=== PATIENT | male | born 1980 | race Caucasian/White ===

== ENCOUNTER 2020-07-14 09:22 | Outpatient (RCR) | payer OTHER, SELFPAY ==
[2020-07-10] MEDS: COVID-19 VACC, MRNA(PFIZER)/PF 30 MCG/0.3 ML SYRINGE IM (18:31)
[2020-07-31] MEDS: COVID-19 VACC, MRNA(PFIZER)/PF 30 MCG/0.3 ML SYRINGE IM (18:19)
== END 2020-10-07 23:59 ==
LOC: IMMUN 09:22
PROVIDERS: PCP Family Medicine; Visit Provider Family Medicine
DX: Z23 Encounter for immunization (principal)
CPT/HCPCS: 0001A; 0002A; 91300

== ENCOUNTER → 2021-01-29 15:20 | Outpatient (CLI) | payer OTHER, SELFPAY ==
--- NOTE | 2021-01-29 15:25 | RAD_ITS ---
STUDY: X-RAY CHEST REASON FOR EXAM: Male, 40 years old. Fever and cough TECHNIQUE: 2 PA and lateral views of the chest. COMPARISON: None. FINDINGS: The lungs are clear and expanded. There is no demonstrated pleural abnormality. Normal size heart. Normal mediastinum and jourdan. Normal visualized pulmonary arteries. Normal visualized aortic arch and descending thoracic aorta. Normal visualized thoracic spine. Normal visualized ribs, clavicles, and shoulders. There is no demonstrated abnormality of the visualized soft tissue structures of the upper abdomen. RAD/Chest PA and Lateral IMPRESSION: No acute pulmonary process Electronically Signed: Junior Bhatt MD at 17:04 EDT , Service support ,
== END ==
PROVIDERS: PCP Family Medicine; Referring Provider Family Medicine; Visit Provider Family Medicine
DX: U07.1 COVID-19 (principal)
CPT/HCPCS: 71046

== ENCOUNTER → 2022-08-23 | Outpatient (CLI) | payer OTHER, SELFPAY ==
[2022-08-23 18:01] LABS: Absolute Lymphocyte Count 2.41 X10^3/uL (0.83-4.51); Absolute Neutrophil Count 3.1 X10^3/uL (2.0-7.7); Basophil# 0.05 X10^3/uL; Basophil% 0.8 % (0-1); Eosinophil# 0.25 X10^3/uL; Hematocrit 46.6 % (40-54); Hemoglobin 15.3 g/dL (13.0-16.5); Lymphocyte # 2.41 X10^3/ul (0.83-4.51); Lymphocyte % 38.1 % (19-41); Mean Corp Hgb Conc 32.8 g/dL (32-36); Mean Corpuscular Hgb 28.9 pg (27.0-32.0); Mean Corpuscular Volume 87.9 fL (80-94); Mean Platelet Vol. 10.3 fl (6.2-12.0); Monocyte% 7.9 % (0-10); NRBC Flagged by Analyzer 0 % (0-5); Neutrophil # 3.06 X10^3/uL (2.7-7.7); Neutrophil % 48.4 % (47-70); Platelet Count 218 K/mm3 (150-450); RBC Distribution Width CV 11.6 % (11.6-14.6); RBC Distribution Width SD 36.9 fl (35.1-43.9); White Blood Count 6.3 K/mm3 (4.4-11.0)
[2022-08-23 18:20] LABS: Vitamin B12 440 pg/mL (211-911); Vitamin D,25 Hydroxy 25.4 ng/mL
[2022-08-23 18:55] LABS: ALB/GLOB Ratio 1.1 RATIO (0.9-2.4); AST(SGOT) 41 U/L (15-37); Alanine Aminotransfer ALT/SGPT 85 U/L (16-61); Albumin, Serum 4.1 g/dL (3.2-5.0); Alkaline Phosphatase 68 U/L (45-117); Anion Gap 5 (5-15); BUN 11 mg/dL (7-18); BUN/Creat Ratio 13.3 RATIO (10-20); Calcium,Total 9.2 mg/dL (8.5-10.1); Chloride 102 mmol/L (98-107); Cholesterol 201 mg/dL (200); Creatinine, Serum 0.82 mg/dL (0.70-1.30); EST Glomerular Filtration Rate 108 mL/min (>60); Est Glom Filt Rate - Afr Amer 131 mL/min (>60); Globulin 3.6 g/dL (2.2-4.2); Glucose 91 mg/dL (74-106); High Density Lipoprotein 43 mg/dL; Potassium 4.1 mmol/L (3.5-5.1); Protein, Total 7.7 g/dL (6.4-8.2); Sodium Level 134 mmol/L (136-145); T4 Free Direct 0.83 ng/dL (0.76-1.46); Thyroid Stim Hormone (TSH) 8.86 uIU/mL (0.358-3.74); Triglycerides 163 mg/dL; Very Low Density Lipoprotein 33 mg/dL (5-40)
== END | disposition home or self-care (01) ==
LOC: BFHLAB 15:51
PROVIDERS: PCP Nurse Practitioner Family; Referring Provider Nurse Practitioner Family; Visit Provider Nurse Practitioner Family
DX: E03.9 Hypothyroidism, unspecified (principal); E66.01 Morbid (severe) obesity due to excess calories; E78.5 Hyperlipidemia, unspecified; Z13.21 Encounter for screening for nutritional disorder
CPT/HCPCS: 36415; 80053; 80061; 82306; 82607; 84439; 84443; 85025

== ENCOUNTER 2022-10-06 09:51 | Emergency (ER) | payer OTHER, SELFPAY ==
[2022-10-06 09:52] VITALS: BP 143/104; PULSE 86; RESP 16; TEMP 36.6; O2SAT 96; BMI 40.7
--- NOTE | 2022-10-06 10:04 | EDS_ITS ---
HPI History of Present Illness Chief Complaint: Back Detail of Chief Complaint: Back pain Informant: patient Onset/Context/Timing Current Severity: 11/08 Narrative Narrative: Patient presents with back pain that started yesterday. He denies injury or trauma. He denies pain rating down his leg. Patient states that certain movements do seem to make it worse but then he will get into a certain position for of comfort and then the pain comes back. He describes nausea with it. There is been no vomiting. He denies urinary symptoms of frequency or urgency or hematuria. He has had no fevers. Patient states he had an MRI years ago that showed spinal stenosis. Patient has not had any back surgeries. No history of kidney stones. Patient does state that at times pain radiates around the front of the abdomen to the groin. PFSH PFS Medical History (Updated 10/06/22 @ 11:[address] Elizabeth Chaney, ) Rotator cuff arthropathy of right shoulder Thyroid disease Home Medications cyclobenzaprine 10 mg tablet 10 mg PO TID PRN Muscle Spasm #20 TABLETS 10/06/22 [Rx Last Taken Unknown] hydrocodone-acetaminophen 5-325mg 5mg-325mg 1 tab PO Q4H PRN PRN Pain 3 days #15 TABLETS 10/06/22 [Rx Last Taken Unknown] naproxen 500 mg tablet (Naprosyn) 500 mg PO BID PRN pain #20 tabs 10/06/22 [Rx Last Taken Unknown] Allergy/AdvReac Type Severity Reaction Status Date / Time Penicillins [PCN] Allergy Rash Verified 10/06/22 09:51 Surgical History (Updated 10/06/22 @ 10:15 by Michelle Farah) Vasectomy status Social History Smoking Status: Never smoker ROS ROS ED Review of Systems ROS Unobtainable: other Constitutional Constitutional ED: Reports lethargy; Denies chills, fever(s), sweats or weight loss Eyes Eyes: Denies blurry vision, change in vision or diplopia ENT ENT ED: Denies rhinorrhea or sore throat Cardiovascular Cardiovascular: Denies chest pain, orthopnea or racing heartbeat Respiratory/Chest Respiratory/Chest: Denies cough, dyspnea, dyspnea on exertion, orthopnea or sputum Gastrointestinal Gastrointestinal: Reports nausea; Denies abdominal pain, diarrhea or vomiting Genitourinary Genitourinary ED: Denies dysuria, hematuria or urinary frequency Musculoskeletal Musculoskeletal: Reports back pain; Denies arthralgias, myalgias or neck pain Integumentary Denies abscess, Abrasions or rash Neurologic Neurologic: Denies headache(s) or weakness Psychiatric Psychiatric: Denies anxiety, depression or suicidal thoughts Endocrine Endocrinology: Denies polydipsia, polyphagia or polyuria Hematologic/Lymphatic Hematologic/Lymphatic: Denies easy bleeding, easy bruising or lymphadenopathy Allergic/Immunologic Allergic/Immunologic ED: Denies mouth swelling, tongue swelling or urticaria EXAM Physical Exam Const Vital Signs: 10/06/22 09:52 Temperature 97.8 F Temperature Source Temporal Pulse Rate 86 Respiratory Rate 16 Blood Pressure 143/104 H Blood Pressure Mean 117 Pulse Ox 96 Oxygen Delivery Method Room Air Positive well nourished and well developed General Appearance ED: well developed and NAD HEENT Reports TM's clear and moist mucous membranes normocephalic and atraumatic; Negative for trauma or tenderness Tympanic Membrane ED: Yes TM's clear Eyes PERRL and EOMs intact bilaterally General Eye ED: Negative for pale conjunctiva or scleral icterus Neck no lymphadenopathy, supple and no JVD General: Negative for tenderness Chest Wall inspection of chest normal and palpation of chest normal Chest: Negative for tenderness Resp normal respiratory effort and clear to auscultation bilaterally Effort and Inspection: Negative for respiratory distress or pain with movement Auscultation: Negative for rhonchi, wheezes or diminished lung sounds Cardio regular rate, regular rhythm, S1 normal heart sound, S2 normal heart sound and no murmurs Peripheral Pulses: pulses 2+ throughout GI normal to inspection, nondistended, normoactive bowel sounds, soft to palpation, non-tender, non-distended and no masses Back/Spine Back/Spine Narrative: Patient with tenderness palpation over the right lumbar paraspinal musculature and lumbar spine diffusely. There is no erythema or warmth. No significant CVA tenderness on exam. Negative straight leg raises. Deep tendon reflexes are plus 2 out of 4 bilaterally at the patella and Achilles. Patient has normal L5 extension bilaterally. Patient has normal sensation to light touch. Extremity normal to inspection General Extremety ED: Negative for edema General Extremity: Negative for edema Neuro oriented x3, CN's II-XII intact bilaterally, no sensory deficits noted and gait normal Sensorium / Orientation: awake, alert, oriented to person, oriented to place and oriented to time Motor Exam: strength 5/5 throughout and strength abnormal Psych mental status grossly normal Skin no rashes or lesions noted and no wounds MDM MDM MDM Narrative Medical decision making narrative: Patient with back pain that is atraumatic. This could be musculoskeletal versus kidney stone versus gallbladder disease. Pain does seem to be positional at times but radiates to the right side of the abdomen. IV line established. He was medicated initially with Toradol and Norflex as well as some Zofran. He did have some pain relief with that but continues to describe some discomfort. CBC with differential is normal. Chemistries were normal. CT scan of the abdomen pelvis showed no evidence of kidney stones or other acute intra-abdominal process. There was an incidental finding in the anterior aspect of the right lower lobe that could either represent a cystic mass versus a pulmonary sequestration. I did discuss this with the patient and gave him a copy of his CT results. Urinalysis was unremarkable. At this point I feel most likely patient's pain is musculoskeletal. He will be given a prescription for Naprosyn and [place] and Flexeril. He is referred to his primary care physician for follow-up within next 3 to 5 days. Patient will follow-up with his primary care physician regarding lung findings. Lab Data Attestation: I reviewed the patient's lab results. Labs: Laboratory Results - last 24 hr 10/06/22 10/06/22 10:18 10:18 WBC 6.1 RBC 5.43 Hgb 15.6 Hct 47.3 MCV 87.1 MCH 28.7 MCHC 33.0 RDW Std Deviation 36.9 RDW Coeff of Ariana 11.6 Plt Count 242 MPV 9.9 Immature Gran % (Auto) 0.300 Neut % (Auto) 52.7 Lymph % (Auto) 33.9 [place] % (Auto) 8.8 Eos % (Auto) 3.3 Baso % (Auto) 1.0 Absolute Neuts (auto) 3.2 Absolute Lymphs (auto) 2.08 Nucleated RBC % 0 Sodium 140 Potassium 4.7 Chloride 109 H Carbon Dioxide 25.0 Anion Gap 6 BUN 14 Creatinine 1.09 Estim Creat Clear Calc 96.90 Est GFR (MDRD) Af Amer 95 Est GFR (MDRD) Non-Af 79 BUN/Creatinine Ratio 12.8 Glucose 105 Calcium 9.6 Radiography Diagnostic Testing: Clinical Impression(s) from Imaging Studies Abdomen/Pelvis CT 10/06/22 10:33 IMPRESSION: 7.2 cm x 2.5 cm x 5.9 cm cystic mass in the anterior right lower lobe. This may represent either pulmonary sequestration or bronchogenic cyst. Fatty infiltration of the liver. Scattered sigmoid diverticula. Electronically Signed: Alen Munguia MD at 11:06 EDT , Discharge Plan Triage Chief Complaint: Back ED Provider: Elizabeth Chaney Dx/Rx/DC Orders Clinical Impression: Back pain Instructions: ED Back Spasm, No Trauma Prescriptions: New cyclobenzaprine [cyclobenzaprine] 10 mg tablet 10 mg PO TID PRN (Reason: Muscle Spasm) Qty: 20 0RF hydrocodone-acetaminophen [hydrocodone-acetaminophen] 5-325 mg tablet 1 tab PO Q4H PRN PRN (Reason: Pain) 3 Days Qty: 15 0RF naproxen [Naprosyn] 500 mg tablet 500 mg PO BID PRN (Reason: pain) Qty: 20 0RF Primary Care Provider: Julianna Heath Referrals: Julianna Heath, [facility] [Primary Care Provider] - 5-7 Days Disposition Disposition: Home, Self Care
[2022-10-06] MEDS: Orphenadrine 60 MG/2 ML Ampul IM (10:18)
[2022-10-06] MEDS: Ondansetron 4 MG/2 ML Vial IV (10:20)
[2022-10-06] MEDS: Ketorolac 30 MG/ML Syringe IV (10:20)
[2022-10-06] MEDS: 0.9% Normal Saline 1,000 ML 150 ML IV (10:26)
[2022-10-06 10:32] LABS: Absolute Lymphocyte Count 2.08 X10^3/uL (0.83-4.51); Absolute Neutrophil Count 3.2 X10^3/uL (2.0-7.7); Basophil# 0.06 X10^3/uL; Eosinophils% 3.3 % (0-5); Hematocrit 47.3 % (40-54); Hemoglobin 15.6 g/dL (13.0-16.5); Lymphocyte # 2.08 X10^3/ul (0.83-4.51); Lymphocyte % 33.9 % (19-41); Mean Corpuscular Hgb 28.7 pg (27.0-32.0); Mean Corpuscular Volume 87.1 fL (80-94); Mean Platelet Vol. 9.9 fl (6.2-12.0); Monocyte# 0.54 X10^3/uL; Monocyte% 8.8 % (0-10); NRBC Flagged by Analyzer 0 % (0-5); Neutrophil # 3.23 X10^3/uL (2.7-7.7); Neutrophil % 52.7 % (47-70); Platelet Count 242 K/mm3 (150-450); RBC Distribution Width CV 11.6 % (11.6-14.6); RBC Distribution Width SD 36.9 fl (35.1-43.9); Red Blood Count 5.43 M/mm3 (4.6-6.2); White Blood Count 6.1 K/mm3 (4.4-11.0)
--- NOTE | 2022-10-06 10:33 | CT_ITS ---
STUDY: CT ABDOMEN AND PELVIS WITHOUT CONTRAST REASON FOR EXAM: Male, 41 years old. Right flank pain RADIATION DOSAGE (If Supplied By Facility): CTDIvol = ( 24.18 ) mGy, DLP = ( 1419.63 ) mGycm TECHNIQUE: Transaxial images were obtained from the dome of the diaphragm to the symphysis pubis without oral contrast, and without intravenous contrast. Sagittal and coronal images were reconstructed. Individualized dose optimization techniques were used for this CT. COMPARISON: None. FINDINGS: Minimal increased linear markings in the lingular segment of the left upper lobe suggestive of linear atelectasis and/or scarring. There is a 7.2 cm x 8.5 cm x 5.9 cm cystic mass in the medial aspect of the right lower lobe anteriorly. This may represent a pulmonary sequestration or pulmonary cyst. The visualized portions of the heart are within normal limits. There is decreased attenuation of the liver consistent with steatosis. Normal gallbladder and extrahepatic biliary system. Normal spleen. Normal pancreas. Normal bilateral adrenal glands. Normal right kidney. Punctate calculus is seen in the lower pole calyx of the left kidney. Normal visualized stomach. Normal small intestine. There are scattered colonic diverticula consistent with diverticulosis. The appendix is visualized and appears normal. Normal abdominal aorta. Normal inferior vena cava. Normal retroperitoneum. Normal urinary bladder. Normal abdominal wall. There are degenerative changes of the visualized lumbar spine. Loss of the normal lumbar lordosis. CT/Abdomen/Pelvis without Cont IMPRESSION: 7.2 cm x 2.5 cm x 5.9 cm cystic mass in the anterior right lower lobe. This may represent either pulmonary sequestration or bronchogenic cyst. Fatty infiltration of the liver. Scattered sigmoid diverticula. Electronically Signed: Alen Munguia MD at 11:06 EDT ,
[2022-10-06 10:46] LABS: Anion Gap 6 (5-15); BUN 14 mg/dL (7-18); BUN/Creat Ratio 12.8 RATIO (10-20); Calcium,Total 9.6 mg/dL (8.5-10.1); Chloride 109 mmol/L (98-107); Creatinine, Serum 1.09 mg/dL (0.70-1.30); EST Glomerular Filtration Rate 79 mL/min (>60); Est Glom Filt Rate - Afr Amer 95 mL/min (>60); Glucose 105 mg/dL (74-106); Potassium 4.7 mmol/L (3.5-5.1); Sodium Level 140 mmol/L (136-145)
[2022-10-06 10:54] LABS: Bacteria 0 SEEN /hpf (None Seen); Red Blood Cells-Urine 0 SEEN /hpf (0-5); Squamous Epithelial Cells - UA 0 SEEN /hpf (0-5); White Blood Cells 0 SEEN /hpf (0-5)
[2022-10-06 11:04] LABS: Color, Urine Yellow (Yellow); Glucose, Dipstick Normal (Normal); Ketone-Dipstick Negative (Negative); Leukocyte Esterase-Dipstick Negative /ul (Negative); Nitrite-Dipstick Negative (Negative); Occult Blood-Urine Negative /ul (Negative); Protein-Dipstick 15 mg/dl (Negative); Urine Bilirubin Dipstick Negative (Negative); Urine Clarity Clear (Clear); Urine Urobilinogen Normal (Normal)
[2022-10-06 11:24] LABS: Mucous, Urine 1+ /hpf (<or=2+)
[2022-10-06 11:47] VITALS: BP 144/99; PULSE 81; RESP 16; O2SAT 97
== END 2022-10-06 11:47 | disposition home or self-care (01) ==
PROVIDERS: Emergency Provider Emergency Medicine; PCP Nurse Practitioner Family; Visit Provider Emergency Medicine
DX: M54.9 Dorsalgia, unspecified (principal)
CPT/HCPCS: 74176; 80048; 81001; 85025; 96361; 96372; 96374; 96375; 99283; J7030; A4216; J2405

== ENCOUNTER → 2023-07-16 | Outpatient (CLI) | payer OTHER, SELFPAY ==
--- OUTSIDE RECORDS SUMMARY | 2023-07-16 08:38 | XMS RPT_ITS | CCD ---
Author Name Unknown Address [address] [place] [address] Organization [facility] Care Team Providers Care Wage Analyst Name Role Phone CHON Matute Attending Provider Jacquie LALA, Arturo Evangelista Primary Care Provider 1( [phone] Allergies Allergy Classification Reported Allergen(s) Allergy Type Date of Onset Reaction(s) Facility (1 source) Penicillin G Benzathine Drug allergy Unknown [facility] Other (1 source) Penicillins Drug Intolerance 9 Rash [facility] Work Phone: Medications Current Medications Medication Drug Class(es) Dates Sig (Normalized) Sig (Original) busPIRone hydrochloride 10 mg oral tablet (1 source) take 1 tablet by mouth twice daily BuSpar 10 MG 1 tablet Orally Twice a day Active CAM Boot as directed (1 source) Start: 10-10-2021 CAM Boot as directed as directed as directed as directed for as directed Sep, Active Completed/Discontinued Medications Medication Drug Class(es) Dates Sig (Normalized) Sig (Original) FLUoxetine 20 mg oral capsule (2 sources) Serotonin Reuptake Inhibitor FLUoxetine (PROZAC) 20 mg capsule Indications: Bronchitis Take 20 mg by mouth once daily. 30 mg daily 0 Active Problems Active Problems Problem Classification Problem Date Documented Da te Episodic/Chronic Fracture of lower limb (3 sources) Fracture of unspecified metatarsal bone(s), left foot, initial encounter for closed fracture; Translations: [Displaced fracture of navicular [scaphoid] of left foot, initial encounter for closed fracture] Onset: 10-10-2021 Resolved: 10-10-2021 Episodic Past or Other Problems Problem Classification Problem Date Documented Da te Episodic/Chronic Other connective tissue disease (1 source) Pain in left foot Onset: 10-10-2021 Resolved: 10-10-2021 Episodic Other injuries and conditions due to external causes (1 source) Unspecified injury of unspecified ankle, initial encounter Onset: 10-10-2021 Resolved: 10-10-2021 Episodic Results Test Name Value Interpretation Reference Range Facil ity Vital Signs Date Time Vital Sign Value Performing Clinician Facility 10-10-2021 11:10-0400 Body height Brando Matute Other [facility] Other 10-10-2021 11:10-0400 Body mass index (BMI) [Ratio] 40.68 kg/m2 Brando Matute Other [facility] Other 10-10-2021 11:10-0400 Body temperature 98 [degF] Brando Matute Other [facility] Other 10-10-2021 11:10-0400 Body weight 136.08 kg Brando Matute Other [facility] Other 10-10-2021 11:10-0400 Respiratory rate 20 /min Brando Matute Other [facility] Other 10-10-2021 11:10-0400 SaO2% (BldA) [Mass fraction] 99 % Brando Matute Other [facility] Other Encounters Encounter Date Encounter Type Care Provider Facility Start: 10-27-2021 End: 10-27-2021 Subsequent hospital visit by physician Xr [facility] Jeet Sullivan Work Phone: Radiology Procedures Date Procedure Procedure Detail Performing Clinician Start: 10-27-2021 Radex foot complete minimum 3 views Dany Mare Work Phone: Start: 10-10-2021 X-ray of left foot SQUEEZER OPERATOR-C Brando Matute Work Phone: Start: 10-10-2021 X-ray of left ankle SQUEEZER OPERATOR- C Brando Carbajalaker Work Phone: Plan of Treatment Date Care Activity Detail Author Start: 12-31-2021 Influenza vaccination INFLUENZA (Sea son Ended) [facility] Start: 11-20-2014 LIPID SCREEN LIPID SCREEN [facility] Start: 11-20-1998 Urine microalbumin profile DTAP,TDAP ,TD (1 - Tdap) [facility] Start: 11-20-1997 HEPATITIS C SCREENING HEPATITIS C SC REENING [facility] Start: 11-20-1997 HIV SCREENING HIV SCREENING [facility] Start: 1991 Adult depression scr eening assessment DEPRESSION SCREENING [facility] Payers Date Payer Category Payer Private Health Insurance [employer] A ETNA CHOICE POS II [id number] 2021-Present [phone] [address] [place] [address] POS [id number] Private Health Insurance [id number] Self-pay Self Pay [id number] Social History Date Type Detail Facility Tobacco smoking status NHIS Unknown if ever smoked [facility] Work Phone: Start: 1980 Sex Assigned At Male [facility] Sex Assigned At Sex Assigned At [facility] [employer] Other Start: 06-28-2018 Tobacco smoking status NHIS Never smoked tobacco [facility] Work Phone: Start: 06-28-2018 Tobacco use and exposure Smokeless tobacco non-user [facility] Work Phone: Start: 10-17-2021 End: 10-27-2021 Exposure to SARS-CoV-2 (event) Not sure [facility] Work Phone: Progress note 10-27-2021 Note Date & Type Note Facility 10-27-2021 Note HNO ID: [id number] Author: RT eMrly(R) Service: ? Author Type: Technologist Type: Progress Notes Filed: 10/27/2021 8:43 AM Note Text: Radiology Service Progress Note PATIENT NAME: Sesar Lopez DATE OF SERVICE: October 27, 2021 TIME: 8:32 AM PATIENT IDENTITY VERIFICATION COMPLETED USING TWO (2) IDENTIFIERS: Name and Date of confirmed by patient verbally. FALL SCREENING: Has the patient had 2 falls in the last year or 1 fall with injury or currently using an Ambulatory Assistive Device (Walker, Cane, Wheelchair, Crutches, etc.)? No PATIENT GENDER DATA: Male PATIENT RELEVANT IMPLANT DATA REVIEWED: Not Applicable RADIOLOGY DEPARTMENT: General X-ray: Exam(s) Completed: Lower Extremity X-Ray(s): Foot, Left and Wt. Bearing PERIPHERAL IV DATA: Not applicable SIGNED BY: RT Merly(R) October 27, 2021 8:32 AM [facility] Progress note 10-27-2021 Note Date & Type Note Facility 10-27-2021 Note HNO ID: [id number] Author: Dany Garvey Service: ? Author Type: Physician Type: Progress Notes Filed: 10/27/2021 8:33 AM Note Text: Initial Podiatric Office Visit: Chief Complaint: This 40 year old male who presents with chief complaint:left foot injury HPI Patient presents to clinic for evaluation of left foot. On October 09, patient rolled his left foot while being tazed for instruction. He states he was not adequately protected and his left foot buckeled beneath him. He went to urgent care on October 10 and had xrays that were suggestive of avulsion fracture of navicular. He was placed in boot and has been ambulatory in boot. He denies any pain. PAIN EVALUATION No data found in the last 1 encounters. No results found for: HBA1C PCP: Arturo Dhillon MD No past medical history on file. Current Outpatient Medications Medication Sig - ofloxacin (FLOXIN) 0.3 % otic solution Use 5 Drops in the right ear twice daily. - FLUoxetine (PROZAC) 20 mg capsule Take 20 mg by mouth once daily. 30 mg daily No current facility-administered medications for this visit. ALLERGIES Allergen Reactions - Penicillins Rash PAST SURGICAL HISTORY Procedure Laterality Date - REPAIR ROTATOR CUFF,ACUTE Right 2005 - VASECTOMY No family history on file. Social History Tobacco Use - Smoking status: Never Smoker - Smokeless tobacco: Never Used Substance Use Topics - Alcohol use: Not on file - Drug use: Not on file REVIEW OF SYSTEMS GENERAL: Negative for Malaise, significant weight loss, fever RESPIRATORY: Negative for cough, wheezing and shortness of breath CARDIOVASCULAR: Negative for chest pain, leg swelling and palpitations GI: Negative for abdominal discomfort, blood in stools or black stools and change in bowel habits : Negative for dysuria, frequency and incontinence MUSCULOSKELETAL: Negative for joint pain or swelling, back pain, and muscle pain. SKIN: Negative for lesions, rash, and itching. HEMATOLOGY/LYMPHOLOGY Negative for prolonged bleeding, bruising easily, and swollen nodes. ENDOCRINE: Negative for cold or heat intolerance, polyuria, polydipsia and goiter. NEURO: negative Physical Exam: Constitutional: Pt is a well developed 40 year old male who is alert, oriented and cooperative Eyes: Following during examination. No redness or drainage. Respiratory: RR normal and nonlabored. Even breathing. No evidence of distress or shortness of breath. Psychology: Patient is engaged during conversation. Normal affect and mood. Does not appear depressed or anxious during encounter. Vascular: Dorsalis pedis and posterior tibial pulses palpable left Capillary Fill time < 5 seconds to digits 1-5 left Skin temperature warm to war proximal to distal left Hair growth present to digits Neurological: intact light touch/epicritic sensation Dermatological: No open sores are noted left foot Musculoskeletal/Orthopaedic: Patient has no pain to palpation of left foot Foot type is neutral structurally AJ ROM is full with knee extended and flexed 1st MPJ is full when loaded and no pain or crepitus are noted with ROM. MTJ, STJ are full and free of pain and crepitus. +5/5 muscle strength dorsiflexion, plantarflexion, inversion, eversion left Radiographs: 3 views left foot reviewed from outside hospital. I have personally reviewed and interpreted these XR myself: Nondisplaced navicular fracture ASSESSMENT: (T48.656V) Closed displaced fracture of navicular bone of left foot, initial encounter (primary encounter diagnosis) PLAN: 1. History and physical examination performed. 2. XR reviewed with patient and interpreted today 3. I reviewed past xrays and there are concerns for avulsion fracture of navicular but also nondisplaced body fracture of navicular. I am going to repeat xrays of left foot and call patient. 4. If he has body fracture of navicular, he will need either cast immobilized vs boot immobilized for extended duration. 5. Will call with results. 6. If it is just an avulsion fracture and he has no pain, he may be fine wearing firm sole shoe with powerstep inserts 7. powerstep inserts dispensed today Dany Garvey DPM Podiatry [address] [facility] [address] Dept: [phone] Dept [facility] Progress note 10-27-2021 Note Date & Type Note Facility 10-27-2021 Note HNO ID: [id number] Author: Tayla Curran LPN Service: ? Author Type: LICENSED NURSE Type: Progress Notes Filed: 10/27/2021 8:33 AM Note Text: Patient presents with: Left Foot - Fracture, Established Patient, Pain Tayla Curran LPN [facility] History of Present illness Narrative 10-27-2021 RT Merly(R) - 10/27/2021 8:40 AM EDT Note Date & Type Note Facility 10-27-2021 History of Presen t illness Narrative Radiology Service Progress Note PATIENT NAME: Sesar Lopez DATE OF SERVICE: October 27, 2021 TIME: 8:32 AM PATIENT IDENTITY VERIFICATION COMPLETED USING TWO (2) IDENTIFIERS: Name and Date of confirmed by patient verbally. FALL SCREENING: Has the patient had 2 falls in the last year or 1 fall with injury or currently using an Ambulatory Assistive Device (Walker, Cane, Wheelchair, Crutches, etc.)? No PATIENT GENDER DATA: Male PATIENT RELEVANT IMPLANT DATA REVIEWED: Not Applicable RADIOLOGY DEPARTMENT: General X-ray: Exam(s) Completed: Lower Extremity X-Ray(s): Foot, Left and Wt. Bearing PERIPHERAL IV DATA: Not applicable SIGNED BY: RT Merly(R) October 27, 2021 8:32 AM documented in this encounter [facility] Evaluation note 10-10-2021 Note Date & Type Note Facility [facility] Other Evaluation note Note Date & Type Note Facility Evaluation note No assessment information availa ble [facility] Work Phone: Evaluation note Note Date & Type Note Facility documented in this encounter [facility] History general Narrative - Reported Note Date & Type Note Facility [facility] Other Reason for referral (narrative) Diagnostic Procedure Only (Routine) - Closed Note Date & Type Note Facility Referral ID Status Reason Start Date Expiration Date V isits Requested Visits Authorized [id number] Closed Auto-Generate d Referral 10/27/2021 11/26/2022 1 1 [facility] Reason for visit Narrative Diagnostic Procedure Only (Routine) - Closed Note Date & Type Note Facility Referral ID Status Reason Start Date Expiration Date V isits Requested Visits Authorized [id number] Closed Auto-Generate d Referral 10/27/2021 11/26/2022 1 1 [facility] Chief Complaint and Reason for Visit Chief Complaint S99.919A Advance Directives Advance Directive Response Recorded Date/ Time Advance Directives No October 10 1:55pm Summary Purpose Family History No Family History Records FoundNo Family History Records Found Additional Source Comments Care Teams (unrecognized sec tion and content) Wage Analyst Relationship Specialty Start Date End Date Arturo Dhillon MD [address] [place] [address] PCP - General Family Practice 06/28/18 Goals (unrecognized section and content) Goals may be documented in a n alternate sectionNo Information (unrecognized sect ion and content) No Status Records FoundNo Status Records Found INFORMATION SOURCE (unrecogn ized section and content) DATE CREATED AUTHOR AUTHOR'S ORGANIZ ATION 10/27/2021 [facility] REASON FOR VISIT (unrecogniz ed section and content) LEFT ANKLE INJURY Source Comments (unrecognize d section and content) In the event this informatio n is protected by the Federal Confidentiality of Alcohol and Drug Abuse Patient Records regulations: The Federal rules restrict any use of the information to criminally investigate or prosecute any alcohol or drug abuse patient.[facility] FOR RECORDS PERTAINING TO PATIENTS WHO ARE OR HAVE BEEN ENROLLED IN A CHEMICAL DEPENDENCY/SUBSTANCEABUSE PROGRAM, SOME INFORMATION MAY BE OMITTED. This clinical summary was aggregated from multiple sources. Caution should be exercised in using it in the provision of clinical care. This summary normalizes information from multiple sources, and as a consequence, information in this document may materially change the coding, format and clinical context of patient data. In addition, data may be omitted in some cases. CLINICAL DECISIONS SHOULD BE BASED ON THE PRIMARY CLINICAL RECORDS. [facility] provides no warranty or guarantee of the accuracy or completeness of information in this document.
[2023-07-16 10:04] LABS: T4 Free Direct 1.03 ng/dL (0.76-1.46); Thyroid Stim Hormone (TSH) 3.96 uIU/mL (0.358-3.74)
== END | disposition home or self-care (01) ==
LOC: LAB 08:36
PROVIDERS: PCP Nurse Practitioner Family; Referring Provider Nurse Practitioner Family; Visit Provider Nurse Practitioner Family
DX: E03.9 Hypothyroidism, unspecified (principal)
CPT/HCPCS: 36415; 84439; 84443

== ENCOUNTER → 2023-08-13 | Outpatient (CLI) | payer OTHER, SELFPAY ==
[2023-08-13 12:18] LABS: Absolute Neutrophil Count 3.1 X10^3/uL (2.0-7.7); Basophil# 0.04 X10^3/uL; Basophil% 0.7 % (0-1); Eosinophils% 3.6 % (0-5); Hematocrit 46.5 % (40-54); Hemoglobin 15.3 g/dL (13.0-16.5); Mean Corp Hgb Conc 32.9 g/dL (32-36); Mean Corpuscular Hgb 28.8 pg (27.0-32.0); Mean Corpuscular Volume 87.6 fL (80-94); Mean Platelet Vol. 10.3 fl (6.2-12.0); Monocyte% 7.3 % (0-10); NRBC Flagged by Analyzer 0 % (0-5); Neutrophil # 3.12 X10^3/uL (2.7-7.7); Platelet Count 210 K/mm3 (150-450); RBC Distribution Width CV 11.6 % (11.6-14.6); RBC Distribution Width SD 37.2 fl (35.1-43.9); Red Blood Count 5.31 M/mm3 (4.6-6.2); White Blood Count 5.5 K/mm3 (4.4-11.0)
[2023-08-13 12:44] LABS: Anion Gap 4 (5-15); BUN 20 mg/dL (7-18); BUN/Creat Ratio 21.1 RATIO (10-20); Calcium,Total 9.3 mg/dL (8.5-10.1); Chloride 109 mmol/L (98-107); Creatinine, Serum 0.95 mg/dL (0.70-1.30); EST Glomerular Filtration Rate 92 mL/min (>60); Est Glom Filt Rate - Afr Amer 111 mL/min (>60); Glucose 94 mg/dL (74-106); Potassium 4.4 mmol/L (3.5-5.1); Sodium Level 138 mmol/L (136-145)
== END | disposition home or self-care (01) ==
PROVIDERS: PCP Nurse Practitioner Family; Referring Provider Physician Assistant Surgical; Visit Provider Physician Assistant Surgical
DX: Z01.818 Encounter for other preprocedural examination (principal)
CPT/HCPCS: 36415; 80048; 85025

== ENCOUNTER → 2023-09-10 | Outpatient (CLI) | payer OTHER, SELFPAY ==
[2023-09-10 12:00] LABS: Thyroid Stim Hormone (TSH) 3.52 uIU/mL (0.358-3.74)
== END | disposition home or self-care (01) ==
LOC: LAB 11:04
PROVIDERS: PCP Nurse Practitioner Family; Referring Provider Nurse Practitioner Family; Visit Provider Nurse Practitioner Family
DX: E03.9 Hypothyroidism, unspecified (principal)
CPT/HCPCS: 36415; 84439; 84443

== ENCOUNTER → 2023-09-19 | Outpatient (CLI) | payer OTHER, SELFPAY ==
--- NOTE | 2023-09-19 08:05 | RAD_ITS ---
STUDY: X-RAY - LUMBAR SPINE REASON FOR EXAM: Male, 42 years old. Radiating low back pain TECHNIQUE: view(s) of the lumbar spine were obtained. COMPARISON: None FINDINGS: Normal lumbar lordosis. There is no substantial scoliosis. There is a normal alignment of the vertebrae. Normal vertebral bodies and endplates. Normal disc space heights except for degenerative narrowing at L4-5.. There is no demonstrated fracture. The soft tissue structures are unremarkable. RAD/L/S Spine Min 4 Views IMPRESSION: Degenerative changes at L4-5, no fracture or suspicious osseous lesion Electronically Signed: Junior Bhatt MD at 8:37 EDT ,
[2023-09-19 08:48] LABS: Cholesterol 199 mg/dL (200); High Density Lipoprotein 53 mg/dL; PSA,Total - Annual Screen 0.43 ng/mL (0.00-4.00); Triglycerides 179 mg/dL; Very Low Density Lipoprotein 36 mg/dL (5-40)
== END | disposition home or self-care (01) ==
LOC: LAB 07:48
PROVIDERS: PCP Nurse Practitioner Family; Visit Provider Nurse Practitioner Family
DX: Z00.01 Encounter for general adult medical examination with abnormal findings (principal); E55.9 Vitamin D deficiency, unspecified; M54.50 Low back pain, unspecified; Z12.5 Encounter for screening for malignant neoplasm of prostate
CPT/HCPCS: 36415; 72110; 80061; 82306; 84153; G0103

== ENCOUNTER → 2024-04-14 | Outpatient (CLI) | payer OTHER, SELFPAY ==
[2024-04-14 10:55] LABS: Absolute Lymphocyte Count 1.84 X10^3/uL (0.83-4.51); Absolute Neutrophil Count 2.8 X10^3/uL (2.0-7.7); Basophil# 0.05 X10^3/uL; Basophil% 0.9 % (0-1); Eosinophil# 0.17 X10^3/uL; Eosinophils% 3.1 % (0-5); Hematocrit 45.4 % (40-54); Hemoglobin 15.4 g/dL (13.0-16.5); Lymphocyte # 1.84 X10^3/ul (0.83-4.51); Lymphocyte % 33.8 % (19-41); Mean Corp Hgb Conc 33.9 g/dL (32-36); Mean Corpuscular Hgb 29.4 pg (27.0-32.0); Mean Corpuscular Volume 86.6 fL (80-94); Mean Platelet Vol. 9.2 fl (6.2-12.0); Monocyte# 0.52 X10^3/uL; Monocyte% 9.6 % (0-10); NRBC Flagged by Analyzer 0 % (0-5); Neutrophil # 2.84 X10^3/uL (2.7-7.7); Neutrophil % 52.2 % (47-70); Platelet Count 210 K/mm3 (150-450); RBC Distribution Width CV 11.6 % (11.6-14.6); RBC Distribution Width SD 36.7 fl (35.1-43.9); Red Blood Count 5.24 M/mm3 (4.6-6.2); White Blood Count 5.4 K/mm3 (4.4-11.0)
[2024-04-14 11:46] LABS: Anion Gap 3 (5-15); BUN 14 mg/dL (7-18); BUN/Creat Ratio 15.6 RATIO (10-20); Calcium,Total 9.4 mg/dL (8.5-10.1); Chloride 108 mmol/L (98-107); EST Glomerular Filtration Rate 97 mL/min (>60); Est Glom Filt Rate - Afr Amer 118 mL/min (>60); Glucose 104 mg/dL (74-106); Potassium 4.7 mmol/L (3.5-5.1); Sodium Level 138 mmol/L (136-145)
== END | disposition home or self-care (01) ==
LOC: LAB 10:10
PROVIDERS: PCP Nurse Practitioner Family; Referring Provider Student in an Organized Health Care Education/Training Program; Visit Provider Student in an Organized Health Care Education/Training Program
DX: Z01.818 Encounter for other preprocedural examination (principal)
CPT/HCPCS: 36415; 80048; 84443; 85025